=== PATIENT | female | born 1995 | race Caucasian/White ===

== ENCOUNTER 2018-05-20 21:37 | Emergency (ER) | payer OTHER ==
[~2018-05-20] VITALS: Ht 170.2 cm; Wt 94.8 kg
[2018-05-20] MEDS ORDERED: PREDNISONE 20 M20 MG PO (22:46)
[2018-05-20] MEDS ORDERED: ZYRTEC10 M5 PO (22:47)
[2018-05-20 23:05] VITALS: BP 100/59
== END 2018-05-20 23:08 | disposition home or self-care (01) ==
LOC: ER 21:37
DX: L50.9 Urticaria, unspecified (principal); F17.210 Nicotine dependence, cigarettes, uncomplicated